=== PATIENT | female | born 1945 | race Caucasian/White ===

== ENCOUNTER 2022-03-09 17:33 | Emergency (ER) | payer MEDICARE, SELFPAY ==
--- NOTE | 2022-03-09 17:37 | ED.FEMALEGU ---
HPI - Female Genitourinary General Chief complaint: Urogenital-Female Stated complaint: thinks she has a bladder infection Time Seen by Provider: 03/09/22 17:34 Source: patient and RN notes reviewed Mode of arrival: ambulatory Limitations: no limitations History of Present Illness MD elicited complaint: dysuria and UTI Onset (ago): day(s) (2) Location of symptoms: flank Severity: moderate Quality of pain: dull and aching Consistency: intermittent Urinary symptoms: Dysuria, Urgency and Frequency Exacerbating factors: urination Associated symptoms: denies other symptoms Treatment prior to arrival: none Sexual activity: No Related Data Home Medications Medication Instructions Recorded Confirmed allopurinol 100 mg tablet 100 mg PO BID 03/09/22 03/09/22 aspirin 81 mg tablet,delayed 81 mg PO DAILY 03/09/22 03/09/22 release famotidine 20 mg tablet 20 mg PO BID 03/09/22 03/09/22 hydrocodone 5 mg-acetaminophen 325 1 - 2 tablet PO Q6H 03/09/22 03/09/22 mg tablet levothyroxine 88 mcg tablet 88 mcg PO DAILY 03/09/22 03/09/22 pantoprazole 40 mg tablet,delayed 40 mg PO DAILY 03/09/22 03/09/22 release pravastatin 40 mg tablet 40 mg PO DAILY 03/09/22 03/09/22 Allergies Allergy/AdvReac Type Severity Reaction Status Date / Time No Known Allergies Allergy Verified 03/09/22 17:56 Review of Systems Review of Systems: All systems reviewed & are unremarkable except as noted in HPI and below Constitutional: Constitutional: Denies chills and Denies fever(s) PMFSH Past Medical History Medical History (Updated 03/09/22 @ 18:11 by Khoi Campos MD) Coronary artery disease GERD (gastroesophageal reflux disease) Gout Hyperlipidemia Hypertension Hypothyroidism Peripheral vascular disease Surgical History Surgical History (Updated 03/09/22 @ 17:54 by Khoi Campos MD) H/O heart artery stent History of knee replacement Social History Social History (Updated 03/09/22 @ 17:54 by Khoi Campos MD) Smoking status: Never smoker Exam Const: General: healthy appearing, no acute distress and alert Nutritional Appearance: well nourished Orientation/consciousness: patient oriented x3 Limitations: no limitations HENMT: Head: normal to inspection Ears: external ears normal Eyes: Conjunctivae: conjunctivae normal Pupils: Equal, round and reactive pupils present EOM: EOMs intact bilaterally Neck: Neck: normal visual inspection Resp: Effort & Inspection: normal respiratory effort Auscultation: clear to auscultation bilaterally Cardio: Rate: regular rate Rhythm: regular rhythm GI: GI Palp: Yes Soft to palpation and No Tenderness to palpation present (GI) Auscultation: normal bowel sounds : External Female Exam: erythema ( internal labia majora) Back/Spine/Pelvis: Back: CVA tenderness (mild right) Cervical Spine: cervical ROM normal Thoracic/Lumbar Spine: thoraco-lumbar ROM normal Skin: General skin exam: normal color Rashes: no rashes Neuro: General: patient oriented x3, moves all extremities, no focal motor deficits and CN's II-XI intact bilaterally Speech: normal speech Gait exam (Neuro): Normal gait present Extrem: General: normal to inspection and no clubbing, cyanosis or edema Psych: Appearance: grossly normal and well kempt Mental Status: mental status grossly normal Affect: normal affect Attitude: cooperative Course Vital Signs Vital signs: Vital Signs Temperature 36.4 C 03/09/22 17:51 Pulse Rate 90 03/09/22 17:51 Respiratory Rate 16 03/09/22 17:51 Blood Pressure 126/83 03/09/22 17:51 Pulse Oximetry 91 03/09/22 17:51 Oxygen Delivery Room Air 03/09/22 17:51 Temperature 36.4 C 03/09/22 18:21 Pulse Rate 91 03/09/22 18:21 Respiratory Rate 16 03/09/22 18:21 Blood Pressure 126/83 03/09/22 18:21 Pulse Oximetry 94 03/09/22 18:21 Oxygen Delivery Room Air 03/09/22 18:21 MDM - Female Genitourinary Lab Data Labs: Lab Results
[2022-03-09 17:51] VITALS: BP 126/83; PULSE 90; RESP 16; TEMP 36.4; O2SAT 91
[2022-03-09 17:54] LABS: Add Urine Microscopic? NO; Appearance Urine Clear (Clear); Bilirubin Urine Negative (Negative); Blood Urine Negative (Negative); Color Urine Light Yellow (Yellow); Glucose Urine UA Negative (Negative); Ketones Urine Negative (Negative); Leukocyte Esterase Ur Negative LEU/UL (Negative); Nitrate Urine Negative (Negative); Protein Urine Negative (Negative); Specific Grav Ur 1.015 (1.010-1.020); Urobilinogen Urine 0.2 mg/dL (0.2-1.0)
[2022-03-09 18:21] VITALS: BP 126/83; PULSE 91; RESP 16; TEMP 36.4; O2SAT 94
== END 2022-03-09 18:22 | disposition home or self-care (01) ==
PROVIDERS: Emergency Provider Emergency Medicine; PCP Family Medicine
DX: B37.9 Candidiasis, unspecified (principal)
CPT/HCPCS: 81003; 99283